=== PATIENT | male | born 1955 | race Caucasian/White ===

== ENCOUNTER 2020-02-26 12:41 | Observation (INO) | payer BC, SELFPAY ==
[2020-02-26] VITALS (10 sets, daily range): BP systolic 83–132; BP diastolic 50–76; PULSE 53–98; RESP 12–19; TEMP 36.1–36.8; O2SAT 96–100; BMI 39.3
--- NOTE | ~2020-02-26 | CT_ITS ---
EXAMINATION: CTA chest PE protocol DATE: 02/26/2020 14:16 INDICATION: Chest pain. TECHNIQUE: Computed tomography angiography (CTA) of the chest was performed with 100 mL Omnipaque-350 intravenous contrast timed to evaluate the pulmonary arteries. Coronal maximum intensity projection 3D-reconstructions were created by the technologist. Automated exposure control and iterative reconst ruction technique were employed. The dose-length product was 893.47 mGy-cm. COMPARISON: None. FINDINGS: The lungs demonstrate minimal atelectasis. No pleural effusion. The heart size is normal. N o pericardial effusion. There is no pulmonary embolus. The thyroid is enlarged. There is mild thoraci c spondylosis and severe cervical spondylosis. IMPRESSION: 1. No pulmonary embolus. Reviewed, dictated and finalized at location A. IMPRESSION: 1. No pulmonary embolus.
--- NOTE | 2020-02-26 12:41 | ECG_ITS ---
Measurements Intervals [place] Rate: 109 P: [place]: 0 QRS: -9 QRSD: 84 T: 29 QT: 328 QTc: 443 Interpretive Statements ATRIAL FIBRILLATION WITH RAPID VENTRICULAR RESPONSE VENTRICULAR PREMATURE COMPLEXES DELAYED PRECORDIAL R/S TRANSITION BASELINE ARTIFACT- I, II, III, AVR, AVL, AVF, V4-V6 ABNORMAL ECG Electronically Signed On 02-26-2020 13:35:19 CDT by Yung John D.O.
[2020-02-26] MEDS: ASPIRIN 81 MG CHEWABLE TABLET 324 MG PO (12:58)
[2020-02-26] MEDS: SODIUM CHLORIDE 0.9% IV 1,000 ML 999 ML IV CONT ×2 (12:58→14:26)
[2020-02-26 13:03] LABS: Basophils Absolute Auto 0.1 K/mm3 (0.0-0.1); Basophils Percent Auto 1.1 % (0.2-1.2); Eosinophils Absolute Auto 0.1 K/mm3 (0-0.3); Eosinophils Percent Auto 1.3 % (0-4.4); Hemoglobin 17.2 g/dL (14.0-18.0); Immature Granulocyte Absolute 0.03 K/mm3 (0.00-0.031); Immature Granulocyte Percent A 0.3 % (0-0.5); Lymphocytes Absolute Auto 2.33 K/mm3 (0.9-3.2); Lymphocytes Percent Auto 26.8 % (18.3-44.2); Mean Corpuscular HGB Conc 33.7 g/dl (32-36); Mean Corpuscular Hemoglobin 32.9 pg (26-34); Mean Corpuscular Volume 97.5 fl (80-100); Mean Platelet Volume 12.3 fl (7.4-10.4); Monocytes Absolute Auto 0.8 K/mm3 (0.1-0.6); Monocytes Percent Auto 8.6 % (2.6-8.5); Neutrophils Absolute Auto 5.4 K/mm3 (1.3-6.7); Neutrophils Percent Auto 61.9 % (45.5-73.1); Platelet Count Result 178 k/mm3 (150-375); Red Blood Count 5.23 M/mm3 (4.6-6.20); Red Cell Distribution Width 12.6 % (11.5-14.5); White Blood Count 8.7 K/mm3 (4.5-10.0)
[2020-02-26 13:13] LABS: INR 1.1; Prothrombin Time 13.4 Seconds (11.1-14.7)
[2020-02-26 13:14] LABS: Partial Thromboplastin Time 31.8 SECONDS (22.3-36.8)
--- NOTE | 2020-02-26 13:47 | ED.CHESTPAIN ---
HPI - Chest Pain General Chief Complaint: Chest Pain Stated Complaint: FEELING ODD IN CHEST AREA Time Seen by Provider: 02/26/20 12:45 Source: patient Mode of arrival: ambulatory Limitations: no limitations History of Present Illness HPI narrative: This patient is 64 year old male with history of an [place] who presents for evaluation of chest tightness. He states his morning he woke up and he did not feel well. He states he felt a funny feeling in his chest. He states he is having a difficult explaining it but he feels like he cant take a deep breath. He also reports he developed dizziness at the same time. He reports his blood pressure was low at home. HE denies nausea, vomiting, fever, cough, or diarrhea. Related Data Home Medications Medication Instructions Recorded Confirmed albuterol sulfate 1 puff INHALATION QID PRN 02/26/20 02/26/20 aspirin 81 mg PO DAILY 02/26/20 02/26/20 cetirizine 10 mg PO HS 02/26/20 02/26/20 cholecalciferol (vitamin D3) 50 mcg PO DAILY 02/26/20 02/26/20 [Vitamin D3] fluticasone propionate 1 spray INTRANASAL HS 02/26/20 02/26/20 montelukast [Singulair] 10 mg PO HS 02/26/20 02/26/20 multivitamin [Daily Multivitamin] 0.5 tablet PO BID 02/26/20 02/26/20 omega-3 fatty acids [Fish Oil] 1 cap PO HS 02/26/20 02/26/20 simvastatin 40 mg PO HS 02/26/20 02/26/20 Allergies Allergy/AdvReac Type Severity Reaction Status Date / Time Penicillins Allergy Unknown Verified 04/24/17 17:00 Review of Systems Review of Systems: All systems reviewed & are unremarkable except as noted in HPI and below PMFSH Past Medical History Medical History (Updated 02/26/20 @ 15:50 by Lauren Kaur MD) Myocardial infarction Family History Family History (Updated 02/26/20 @ 17:56 by Charissa Herron RN) Father Family history of atrial fibrillation Kidney disease Mother Colon polyp DVT (deep venous thrombosis) Osteoporosis Sibling Osteoporosis Social History Social History Smoking status: Never smoker Alcohol intake: unknown Gender identity (if verbalized by the patient): Male Spiritual care concerns: No Exam Const: General: alert Orientation/consciousness: patient oriented x3 HENMT: Head: normocephalic and atraumatic Face and sinus: face symmetric Mouth: Yes Normal oral and palatal mucosa present, Yes lip normal, Yes oropharynx normal and Yes moist mucous membranes Throat: posterior oropharynx normal Eyes: EOM: EOMs intact bilaterally Chest: Chest palpation & inspection: normal inspection of the chest Resp: Effort & Inspection: normal respiratory effort and retractions Auscultation: clear to auscultation bilaterally Cardio: Rate: regular rate Rhythm: abnormal rhythm regularly irregular Heart sounds: no murmurs GI: GI Palp: Yes Soft to palpation, No Tenderness to palpation present (GI), No Guarding due to palpation present (GI) and No Rigid due to palpation Neuro: General: patient oriented x3 and moves all extremities Course Consultations Consultation #1: I have discussed case with Dr. Yang . He will consult and recommends lovenox. I discussed case with Kerline Schofield who acceps patient to hospitalist service under DR. Cochran in IMU Date: 02/26/20 Time: 15:48 Vital Signs Vital signs: Vital Signs Temperature 98.2 F 02/26/20 12:46 Pulse Rate 88 02/26/20 12:46 Respiratory Rate 12 02/26/20 12:46 Blood Pressure 83/50 L 02/26/20 12:46 Pulse Oximetry 100 02/26/20 12:46 Temperature 98.2 F 02/26/20 12:46 Pulse Rate 96 02/26/20 16:03 Respiratory Rate 19 02/26/20 16:03 Blood Pressure 96/61 L 02/26/20 16:49 Pulse Oximetry 98 02/26/20 16:03 MDM - Chest Pain Lab Data Attestation: I reviewed the patient's lab results. Result diagrams: 02/26/20 12:52 02/26/20 13:39 Labs: Lab Results 02/26/20 02/26/20 02/26/20 Range/Units 12:52 12:52 12:52 WBC 8.7 (4.5-10.0) K/mm3 RBC 5.23 (4.6
[2020-02-26 14:01] LABS: Anion Gap 4 mmol/L (8-16); Blood Urea Nitrogen 16 mg/dL (9-20); Calcium 8.8 mg/dL (8.4-10.2); Carbon Dioxide 28 mmol/L (22-30); Chloride 109 mmol/L (98-107); Estimated CRCL calculation 88 ml/min; Estimated Glomerular Filt Rate > 60; Glucose 95 mg/dL (75-110); Potassium 4.2 mmol/L (3.4-5.0); Sodium 141 mmol/L (137-145)
[2020-02-26 14:13] LABS: Troponin I < 0.012 ng/mL (0.000-0.034)
[2020-02-26] MEDS: ENOXAPARIN 120 MG/0.8 ML SYRINGE SUB-Q (15:45)
[2020-02-26 15:49] LABS: Thyroid Stimulating Hormone Reflex 0.851 uIU/mL (0.465-4.68)
[2020-02-26] MEDS: ENOXAPARIN 30 MG/0.3 ML SYRINGE 15 MG SUB-Q (15:56)
[2020-02-26 15:57] LABS: Troponin I < 0.012 ng/mL (0.000-0.034)
--- NOTE | 2020-02-26 17:28 | PC.NURSE ---
This patient, Jeremías Samuel, was admitted to IMU Room 200-01. Patient/family oriented to hospital policies and general routines including ID bracelet, bed and alarms, visiting hours, pain management, procedures, bathroom and other care routines, personal items, smoking policy, room service/diet, and visiting hours. Information on how to activate the Rapid Response Team has been discussed. Patient/Family are encouraged to report perceived risks to care and to ask questions if they do not understand what they are told or what they should do.
--- NOTE | 2020-02-26 17:57 | ECG_ITS ---
Measurements Intervals [place] Rate: 53 P: 2 CT: 186 QRS: 16 QRSD: 94 T: 53 QT: 411 QTc: 386 Interpretive Statements SINUS BRADYCARDIA BORDERLINE ECG Electronically Signed On 02-27-2020 7:59:20 CDT by Yung John D.O.
--- NOTE | 2020-02-26 18:45 | PM.IMHP ---
H&P: HPI History of Present Illness Date/Time: 02/26/20 18:45 Chief complaint: Chest discomfort. Narrative: Jeremías Samuel is a 64-year-old male with history of non STEMI in November 2014 with unremarkable cardiac catheterization, hypertension no longer requiring medication, and hyperlipidemia who presented to the emergency department earlier today for evaluation of chest discomfort. Not long after waking from sleep he noticed an odd feeling in the midsternal chest region that he has a difficult time describing, denying any significant heaviness or pressure. It continued through breakfast and his morning routine, and he decided to come to the emergency department after he began feeling lightheaded and dizzy while walking down the [place]. He then checked his blood pressure and reports that it was in the 80s systolic. He was clammy on arrival to the ED and felt perhaps a bit short of breath as well. He was found to be in atrial fibrillation, which is a new diagnosis for him, and he is being admitted in this setting. He has since converted to a sinus rhythm without pharmacologic intervention and he has no complaints at the time of my evaluation. Again, he has no known history of atrial fibrillation. He had a sleep study done several years ago which showed evidence of mild sleep disordered breathing with moderate snoring held ever there were not enough events to diagnose sleep apnea. states that he still snores and at time she has heard him pause during sleep. He denies orthopnea, PND, and daytime somnolence. He has no history of thyroid disease and reports a stable weight. Review of Systems Review of Systems: Narrative: 12 systems were reviewed with pertinent positives and negatives as per HPI. No recent cold or flu symptoms. He denies cough and shortness of breath. No sick contacts. No nausea, vomiting, or diarrhea. No dysuria. His occasional lower extremity edema, left greater than right, but nothing significant. No history of venous thromboembolism. Except as documented, all other systems were reviewed and are negative. [facility] Past Medical History Medical History (Updated 02/26/20 @ 21:31 by Kerline Schofield PA-C) History of melanoma (~1992) Status post wide local excision of melanoma from the right upper extremity. Hyperlipidemia Hypertension No longer requiring medication. Mild intermittent asthma NSTEMI (non-ST elevated myocardial infarction) (~11/2014) Cardiac catheterization showed normal coronary arteries and LV function. NSTEMI attributed to possible vasospasm verses thrombotic occlusion with spontaneous resolution or possible small-vessel disease. He is followed by Dr. Henrietta Rowe as an outpatient. Parotid adenoma Status post excision. 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 History of melanoma excision (~1992) Right upper extremity. Family History Family History Father Family history of atrial fibrillation Kidney disease Mother Colon polyp DVT (deep venous thrombosis) Osteoporosis Sibling Osteoporosis Social History Social History (Updated 02/26/20 @ 21:29 by Kerline Schofield PA-C) Social History: Surrogate decision maker: Jessica Samuel, . Code status: full code. Smoking status: Never smoker Alcohol intake: current Alcohol use details: Rare alcohol use in moderation. Substance use: never Additional living arrangements comments: Resides with his in [place]. They have 1 daughter. 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 Gender identity (if verbalized by the patient): Male Spiritual care concerns: No Meds Home Medications and Allergies Home Medicatio
[2020-02-26 19:18] LABS: Troponin I < 0.012 ng/mL (0.000-0.034)
[2020-02-27] VITALS (10 sets, daily range): BP systolic 112–118; BP diastolic 64–67; PULSE 50–65; RESP 16–20; TEMP 36.4; O2SAT 96–99
[2020-02-27 05:44] LABS: Alanine Aminotransferase 44 U/L (4-50); Albumin Level 3.3 g/dL (3.5-5.1); Alkaline Phosphatase 86 U/L (38-126); Anion Gap 5 mmol/L (8-16); Aspartate Amino Transferase 25 U/L (17-59); Bilirubin,Total 0.8 mg/dL (0.2-1.3); Blood Urea Nitrogen 15 mg/dL (9-20); Calcium 8.5 mg/dL (8.4-10.2); Carbon Dioxide 28 mmol/L (22-30); Chloride 107 mmol/L (98-107); Estimated CRCL calculation 87 ml/min; Estimated Glomerular Filt Rate > 60; Glucose 84 mg/dL (75-110); Potassium 3.9 mmol/L (3.4-5.0); Sodium 140 mmol/L (137-145)
--- NOTE | 2020-02-27 06:00 | ECHO_ITS ---
Patient Info Name: Jeremías Samuel Age: 64 years : 1955 Gender: Male Ht: 72 in Wt: 289 lbs BSA: 2.63 m2 HR: 51 bpm BP: 112 / 67 mmHg Heart Rhythm: Sinus Rhythm Technical Quality: Good Exam Date: 02/27/2020 9:35 AM Exam Location: [facility] Patient Status: Outpatient Admit Date: 02/26/2020 Staff Ordering Physician: Lauren Kaur MD Freezing Machine Operator: Jake Kimball RDCS, RT Attending Provider: Tri Haji PA-C Referring Physician: Vincent DELEON; Exam Type: CA echo doppler color flow Study Info Indications I48.0 - Paroxysmal atrial fibrillation Complete two-dimensional, color flow and Doppler transthoracic echocardiogram is performed with contrast to opacify the left ventricle and to improve the deliniation of the left ventricle endocardial borders. Summary 1. Left ventricular chamber dimension is normal. 2. Left ventricular systolic function is normal, estimated at 55-60%. 3. Right ventricular chamber dimension is normal. 4. No valvular dysfunction. Left Ventricle Left ventricular chamber dimension is normal. Left ventricular systolic function is normal, estimated at 55-60%. The left ventricular diastolic function is normal. Right Ventricle Right ventricular chamber dimension is normal. Left Atria Left atrial chamber dimension is mildly enlarged. Right Atria Right atrial chamber dimension is normal. Aortic Valve The aortic valve is normal. Pulmonic Valve The pulmonic valve is not well visualized. Mitral Valve The mitral valve has normal leaflets. Tricuspid Valve The tricuspid valve leaflets are normal. Pericardium/Pleural The pericardium appears normal. Aorta The aortic root size at the sinus of Valsalva is normal. Left Ventricular Outflow Tract Name Value Normal LVOT 2D LVOT Diameter 2.1 cm LVOT Doppler LVOT Peak Gradient 5 mmHg LVOT Mean Gradient 2 mmHg LVOT VTI 27 cm LVOT VTI/AV VTI Ratio 0.9 LVOT Stroke Volume 96 ml LVOT CO 4.9 l/min LVOT CI 1.9 l/min/m2 Mitral Valve Name Value Normal MV Doppler MV Decel [place] 228 cm/s2 MV PHT 70 ms MV Area (PHT) 3.1 cm2 4.0-5.0 MV Diastolic Function MV E Peak Velocity 55 cm/s MV A Peak Velocity 39 cm/s MV E/A 1.4 MV Decel Time 241 ms MV Annular TDI MV E/e' (Septal)
[2020-02-27] MEDS: CHOLECALCIFEROL 1,000 UNITS TABLET 2000 UNITS PO (08:21)
[2020-02-27] MEDS: ENOXAPARIN 40 MG/0.4 ML SYRINGE SUB-Q (08:21)
[2020-02-27] MEDS: ASPIRIN 81 MG ENTERIC TABLET PO (08:21)
[2020-02-27] MEDS: PERFLUTREN LIPID MICROSPHERES 1.5 ML VIAL DILUTED TO 10 ML TOTAL VOLUME IV PUSH (10:01)
--- NOTE | 2020-02-27 13:21 | PM.CNCAR ---
Assessment and Plan Additional Plan 64-year-old man with prior history of presumably vasospastic Sonya mediated non ST elevation [place] 5 years ago at which time he had normal coronary angiograms. He presents with a episode of self-limited paroxysmal atrial fib which was minimally symptomatic during the day yesterday. Following admission he spontaneously is reverted back to sinus rhythm/sinus bradycardia. He is asymptomatic. Echocardiogram done this morning does not show any significant structural cardiac pathology. I am going to recommend starting this patient on Multaq in hopes of maintaining sinus rhythm as well as systemic anticoagulation with Xarelto. The patient with these agents should be able to be discharged today and follow up with Dr. Rowe in our office. Nikolay Yang MD [facility] History of Present Illness History of Present Illness Consult date/time: 02/27/20 13:21 Consult reason: atrial fibrillation Reason For Visit: Chest discomfort. Narrative: This is a 64-year-old patient I am seeing at the request of the hospitalist to assist with the evaluation and management of atrial fibrillation. The patient is unknown to me but apparently known to Dr. crespo of our practice who follows him in the office. The patient had been doing quite well without any recent cardiac issues yesterday morning he had just gotten out of bed and he felt strange but no other specific symptoms. Off and on during the day he felt a little bit lightheaded. As he was experiencing the symptoms he would notice a very mild awareness of irregularity of his heart rate. He does have a home blood pressure cuff and so he put that on and noticed that his systolic blood pressure was low lower than normal he was actually sometimes measuring systolic blood pressures in the 80s. He became more concerned however when his heart rate was rather chaotic. For that reason he came into the emergency room where he was found to be in atrial fibrillation. He was given an injection of Lovenox for systemic anticoagulation his average heart rate in the emergency room was not very fast it was in between 90 and 100 beats per minute most of the time he was admitted to IMU. During the course of the night his rhythm spontaneously converted back to sinus and by the time he was seen by the hospitalist he was in sinus rhythm and was asymptomatic. The patient follows with Dr. christianson min our practice because of a history of a non ST segment elevation [place] which occurred 2014. The chart interestingly states he presented at that time with an episode of retrosternal chest heaviness and a rise in his biomarkers. He was however brought for angiography and found to have no coronary artery lesions angiographically. He was therefore treated medically and from that perspective has done well. Some of the notes in the chart presume he may have had an episode of coronary spasm. The patient is obese and has had couple of evaluations for sleep apnea including a apnea link. He does not believe he has had a formal sleep lab study however. That was discussed by his physicians but he does not believe has ever been performed. Nonetheless he feels well at this time and offers no significant complaints. He had an echocardiogram done this morning which I looked at a short time before coming in to see him. The study shows completely normal looking left ventricular systolic function, no evidence of valvular pathology and no significant atrial dilation. Review of Systems Constitutional: Constitutional: Reports no additional constitutional complaints Eyes: Eyes: Reports no additional eye complaints ENT: Reports system reviewed and no additional complaints, except as documented Cardiovascular: Cardiovascular: Reports as per HPI and Reports palpitations Respiratory: Respiratory: Reports no additional respiratory complaints Gastrointestinal: Gastrointestinal: Reports nausea Musculoskeletal: Musculoskeletal: Reports
--- NOTE | 2020-02-27 14:16 | PM.DS ---
DS: Admitting Diagnosis Admitting Diagnosis Admitting Diagnosis: Chest discomfort. DS: Discharge Diagnosis Discharge Diagnosis (1) New onset atrial fibrillation: Code(s): I48.91 - Unspecified atrial fibrillation Status: Acute (2) Suspected sleep apnea: Code(s): R29.818 - Other symptoms and signs involving the nervous system Status: Acute (3) Hypotension: Code(s): I95.9 - Hypotension, unspecified Status: Acute (4) Hyperlipidemia: Code(s): E78.5 - Hyperlipidemia, unspecified Status: Inactive DS: Summary Hospital Course Reason for hospitalization: Patient is a 64-year-old man with a history of non STEMI in November 2014 with an unremarkable cardiac catheterization at that time, hypertension is no longer requiring medications, and hyperlipidemia, who presented to the emergency room with symptoms of substernal chest discomfort with associated lightheadedness, dizziness and diaphoresis. Checked his blood pressure at home and it was in the 80s systolic. Came to the ER for further evaluation. Initial vitals showed temperature of 98.2?, heart rate 88, respiratory rate 12, blood pressure 83/50, and pulse ox 100% on room air. Initial labs showed normal CBC with differential, normal coag panel, normal BMP, normal troponin x3. Normal TSH. EKG showed he was in atrial fibrillation with RVR and a heart rate of 109. He converted into normal sinus rhythm on his own and remains in normal sinus rhythm at this time. He was admitted to the hospital for further cardiac evaluation for new onset atrial fibrillation and chest pain. Cardiology evaluated the patient recommended placing him on Xarelto and Multaq. He will follow-up with cardiology in a few weeks. Patient is otherwise feeling well without any concerns that he is stable for discharge at this time. Status at Discharge Cognitive/behavioral status at discharge: Stable, improved. Time Spent with Patient Time attestation: Total time spent providing and/or coordinating discharge services: Time spent: Greater than 30 minutes Exam Narrative: Exam Narrative: General: 64-year-old woman laying flat in bed with head elevated at 30 degrees. Appears comfortable. In no acute distress. Skin: No jaundice or cyanosis. Good skin turgor. Neck: Full range of motion. Supple. Respiratory: Lungs are clear to auscultation bilaterally. No bony chest wall tenderness. Cardiovascular: The heart has a regular rate and rhythm without murmur. Lower extremities: No lower extremity edema. Distal pulses are easily palpated. No calf tenderness to palpation. Gastrointestinal: The abdomen is soft, nontender and nondistended with active bowel sounds. Psychiatric: Lucid and oriented. Memory intact. Neurologic: No focal deficits. Speech is clear. No facial drooping. DS: Data Data Completed and Pending Labs on day of discharge: Labs from last 24 hours 02/27/20 02/26/20 02/26/20 04:31 18:50 15:30 Sodium 140 Potassium 3.9 Chloride 107 Carbon Dioxide 28 Anion Gap 5 L BUN 15 Creatinine 1.10 Estim Creat Clear Calc 87 Estimated GFR > 60 Glucose 84 Calcium 8.5 Total Bilirubin 0.8 AST 25 ALT 44 Alkaline Phosphatase 86 Troponin I < 0.012 < 0.012 Total Protein 6.0 L Albumin 3.3 L TSH (Reflex) 02/26/20 12:52 Sodium Potassium Chloride Carbon Dioxide Anion Gap BUN Creatinine Estim Creat Clear Calc Estimated GFR Glucose Calcium Total Bilirubin AST ALT Alkaline Phosphatase Troponin I Total Protein Albumin TSH (Reflex) 0.851 Discharge Plan Discharge Attending physician on discharge: [place] Cochran Consulting providers: Nikolay Yang Discharging Clinician: Tri Haji Anticipated Discharge Date/Time: 02/27/20 14:13 Patient Disposition: Home, Self-Care Activity: as tolerated
== END 2020-02-27 15:24 | disposition home or self-care (01) ==
LOC: ANHED 15:50 → ANHIMU 16:08
PROVIDERS: Emergency Medicine; Physician Assistant; Admitting Provider Internal Medicine; Emergency Provider General Practice; PCP Family Medicine; Visit Provider Physician Assistant
DX: I48.91 Unspecified atrial fibrillation (principal); I95.9 Hypotension, unspecified; R07.9 Chest pain, unspecified; R29.818 Other symptoms and signs involving the nervous system; I25.2 Old myocardial infarction; E78.5 Hyperlipidemia, unspecified; R94.31 Abnormal electrocardiogram [ECG] [EKG]; Z79.82 Long term (current) use of aspirin
CPT/HCPCS: 36415; 71275; 80048; 80053; 84443; 84484; 85025; 85610; 85730; 93005; 93306; 96360; 96361; 96372; 96374; 99285; A9270; G0378; J1650; J7030; Q9957; Q9967

== ENCOUNTER 2020-04-24 02:23 | Outpatient (CLI) | payer BC, SELFPAY ==
[2020-04-24 22:41] LABS: SARS-CoV-2 RNA PCR Negative
== END 2020-04-24 02:24 | disposition home or self-care (01) ==
LOC: ANHCOVIDDT 02:24
PROVIDERS: PCP Family Medicine; Visit Provider Internal Medicine Critical Care Medicine
DX: Z01.812 Encounter for preprocedural laboratory examination (principal)
CPT/HCPCS: 87635; C9803; U0003

== ENCOUNTER 2021-04-22 07:30 | Outpatient (CLI) | payer BC, SELFPAY ==
--- NOTE | 2021-05-13 12:15 | WPDSLEEPSTUD ---
Sleep Study Date of Study: 04/22/21 <Nereida Martínez, DO - Last Filed: 05/13/21 12:53> Ordering Provider: Megha Oconnell, WOODWORKING MACHINE SETTER <Nereida Martínez DO - Last Filed: 05/13/21 12:53> Interpreting Physician: Nereida Martínez DO <Nereida Martínez DO - Last Filed: 05/13/21 12:53> Sleep Study Type: Polysomnogram <Nereida Martínez DO - Last Filed: 05/13/21 12:53> Height: 1.83 m <Nereida Martínez DO - Last Filed: 05/13/21 12:53> Weight: 127.006 kg <Nereida Martínez DO - Last Filed: 05/13/21 12:53> Body Mass Index: 38.0 <Nereida Martínez DO - Last Filed: 05/13/21 12:53> Neck Circumference (inches): 17 <Nereida Martínez DO - Last Filed: 05/13/21 12:53> [place]: 3 <Nereida Martínez DO - Last Filed: 05/13/21 12:53> Reason for Sleep Study Evaluation of HARIS due to paroxysmal atrial fibrillation. <Nereida Martínez DO - Last Filed: 05/13/21 12:53> Sleep History The patient is a 66-year-old male with hypertension, bradycardia, paroxysmal AFib, NSTEMI (11/22) that had a sleep study ordered by his synthetic filament spinner for evaluation of sleep apnea. the patient denies wakening from sleep short of breath. He denies awakening at night with heartburn, belching or cough. He occasionally snores but his is fairly loud enough that others complain. He denies having trouble sleeping when he has a cold. He denies waking up gasping for air throughout the night. He occasionally has breathing problems at night observed by others. He rarely sweats excessively at night. He denies heart palpitations or irregular heartbeats during the night. He rarely falls asleep during the day but never while driving. He denies sleep paralysis, cataplexy and hypnagogic / hypnopompic hallucinations. He denies having nightmares. He rarely has thoughts racing through his mind. He denies feeling sad or depressed. He rarely has anxiety. He denies noticing parts of his body jerk and kicking throughout the night. He denies having crawling and aching feelings in his legs as well as leg pain during the night. He denies grinding his teeth during sleep and awakening with morning jaw pain. He rarely is bothered by pain during the day and is rarely awakened by pain during the night. He denies waking up feeling stiff in the morning with sore and achy muscles. He goes to bed between 10:30-11:30 pm on weekdays and between 11:30 pm - 12:30 am on weekends. it takes him 10-15 minutes to fall asleep. He will wake up once throughout the night at most. When he awakens, he will use the restroom. He can fall back asleep within 5-10 minutes. He usually wakes up at 7:00 a.m. on weekdays and 9:00 a.m. on weekends. He typically gets between 7 and 8 hours of sleep per night. After awakening he does not stay in the bed. He currently lives with his . He does not have rotating shifts at work. He does not consume any caffeinated beverages within 2 hours of bedtime. He denies engaging in physical activity before bedtime. He will sometimes read before falling asleep. He will watch television in another room before falling asleep. He does not take naps in the afternoon or the evening. He drinks 1 soda per week. He denies tobacco, alcohol recreational drug use. <Nereida Martínez DO - Last Filed: 05/13/21 12:53> [facility] Past Medical History Medical History: Medical History History of melanoma (~1992) Status post wide local excision of melanoma from the right upper extremity. Hyperlipidemia Hypertension No longer requiring medication. Mild intermittent asthma NSTEMI (non-ST elevated myocardial infarction) (~11/2014) Cardiac catheterization showed normal coronary arteries and LV function. NSTEMI attributed to possible vasospasm verses thrombotic occlusion with spontaneous resolution or possible small-vessel disease. He is followed by
[2021-05-13 12:25] VITALS: BMI 38.0
== END 2021-04-23 06:16 | disposition home or self-care (01) ==
LOC: ANHCSM 07:32
PROVIDERS: PCP Family Medicine; Visit Provider Nurse Practitioner Adult Health
DX: G47.9 Sleep disorder, unspecified (principal); I48.0 Paroxysmal atrial fibrillation; E66.9 Obesity, unspecified
CPT/HCPCS: 95810